=== PATIENT | female | born 1955 | race Caucasian/White ===

== ENCOUNTER 2016-10-14 15:23 | Emergency (ER) | payer OTHER ==
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
== END 2016-10-14 17:45 | disposition home or self-care (01) ==
LOC: CED 15:23
DX: S52.601A Unspecified fracture of lower end of right ulna, initial encounter for closed fracture (principal); J45.909 Unspecified asthma, uncomplicated; F17.200 Nicotine dependence, unspecified, uncomplicated; V49.40XA Driver injured in collision with unspecified motor vehicles in traffic accident, initial encounter
CPT/HCPCS: 73090; 73110; 99284